=== PATIENT | female | born 1960 | race Caucasian/White ===

== ENCOUNTER 2019-06-01 18:16 | Emergency (ER) | payer MEDICAID, OTHER ==
[~2019-06-01] VITALS: Ht 167.6 cm; Wt 75.3 kg
[2019-06-01 18:39] VITALS: BP_SYST 142
--- NOTE | 2019-06-01 18:39 | NUR ---
Placed in room 4 . Placed on cardiac care unit nurse, blood pressure machine and pulse oximeter. To gown for exam. Side rails up.
--- NOTE | 2019-06-01 18:40 | NUR ---
Pt was wheeled into ER bed 4 c/o abdominal pain for the last 6 months. Pt states pain has gotten worse and is more diffuse and radiates to back. Pt was seen at her doctor and was told she "was backed," and was prescribed colace. Per pt, unable to recall when she had regular bowel movement. Pt states she thinks she passed out last night because she wasn't feeling good and then suddenly woke up. Pt denies fever, chest pain or shortness of breath. No other injuries/complaints per patient or noted.
--- NOTE | 2019-06-01 19:11 | NUR ---
Care endorsed to Massimo RN. Pt left in stable condition.
[2019-06-01 19:38] LABS: BILIRUBIN,URINE NEGATIVE (NEGATIVE); BLOOD, URINE 1+ (NEGATIVE); CLARITY/URINE CLEAR (CLEAR); COLOR,URINE YELLOW (YELLOW); GLUCOSE,URINE NEGATIVE (NEGATIVE); KETONES,URINE NEGATIVE (NEGATIVE); LEUKOCYTE ESTERASE ,URINE NEGATIVE (NEGATIVE); NITRITE, URINE NEGATIVE (NEGATIVE); PROTEIN URINE NEGATIVE (NEGATIVE); UROBILINOGEN,URINE 0.2 (0.2-1.0)
[2019-06-01 19:46] LABS: BASOPHILS % (AUTO) 0.5 % (0.0-2.0); EOSINOPHILS # (AUTO) 0.1 K/uL (0.0-0.4); EOSINOPHILS % (AUTO) 1.7 % (0.0-4.0); HEMATOCRIT 43.2 % (36-48); HEMOGLOBIN 14.8 g/dL (12.0-16.0); LYMPHOCYTES # (AUTO) 2.4 K/uL (1.0-5.5); MEAN CORPUSCULAR HEMOGLOBIN 31 pg (27-31); MEAN CORPUSCULAR HGB CONC 34 % (32-36); MEAN CORPUSCULAR VOLUME 91 fL (79.0-98.0); MONOCYTES # (AUTO) 0.6 K/uL (0.0-1.0); NEUTROPHILS # (AUTO) 5.6 K/uL (1.8-7.7); NEUTROPHILS % (AUTO) 63.8 % (40.0-70.0); PLATELET COUNT (AUTO) 347 K/uL (130-430); RED BLOOD CELL COUNT(AUTO) 4.73 MIL/uL (4.2-6.2); RED CELL DISTRIBUTION WIDTH 12.9 % (9.0-15.0); WHITE BLOOD COUNT (AUTO) 8.7 K/uL (4.8-10.8)
[2019-06-01 19:48] LABS: BACTERIA,URINE None Seen /HPF (None Seen); RBC,URINE 0-3 /HPF (0-3); WBC,URINE NONE SEEN /HPF (0-3)
[2019-06-01 19:49] LABS: MUCUS,URINE None Seen /LPF (None Seen)
[2019-06-01 19:49] LABS: CREATININE 0.71 mg/dL (0.55-1.30); POTASSIUM 4.2 mmol/L (3.5-5.1)
[2019-06-01 19:53] LABS: ALBUMIN 3.5 g/dL (3.4-4.8); TOTAL BILIRUBIN 0.5 mg/dL (0.0-1.0)
[2019-06-01] MEDS ORDERED: LACTULOSE 20 GM/30 ML UDC PO ONE (20:00)
--- NOTE | 2019-06-01 20:07 | NUR ---
Pt taken to Radiology in stable condition
--- NOTE | 2019-06-01 20:32 | NUR ---
Dr. Jaffe bedside for Pt update
--- NOTE | 2019-06-01 20:50 | NUR ---
Patient given written and verbal discharge instructions and verbalizes understanding. ER MD discussed with patient the results and treatment provided. Patient in stable condition. ID arm band removed. Rx of Lactulose, Mineral Oil, and Protonix given. Patient educated on pain management and to follow up with PMD. Pain Scale 0/10 Opportunity for questions provided and answered. Medication side effect fact sheet provided.
[2019-06-01 20:59] VITALS: BP_SYST 138
== END 2019-06-01 20:50 | disposition home or self-care (01) ==
LOC: SED 18:16
DX: R10.9 Unspecified abdominal pain (principal); M54.5 Low back pain; R63.0 Anorexia; R11.0 Nausea; R19.7 Diarrhea, unspecified; R31.9 Hematuria, unspecified; E78.5 Hyperlipidemia, unspecified; Z98.51 Tubal ligation status
CPT/HCPCS: 36415; 74021; 80053; 81000-TC; 85025; 99284

== ENCOUNTER 2022-05-20 13:34 | Emergency (ER) | payer MEDICAID ==
[~2022-05-20] VITALS: Ht 170.2 cm; Wt 63.5 kg
[2022-05-20 14:40] VITALS: BP_SYST 138
--- NOTE | 2022-05-20 14:40 | NUR ---
Patient to ER bed tent1 to gown for evaluation. Side rails up.
[2022-05-20] MEDS ORDERED: ALBUTEROL SULFATE 0.083% 2.5 MG/3 ML VIAL.NEB INH ONE (14:45)
--- NOTE | 2022-05-20 14:45 | NUR ---
ER at bedside examining patient.
--- NOTE | 2022-05-20 14:48 | NUR ---
KENDRAID swabbed, sent to lab.
[2022-05-20 16:26] LABS: BASOPHILS % (AUTO) 0.5 % (0.0-2.0); EOSINOPHILS # (AUTO) 0.2 K/uL (0.0-0.4); EOSINOPHILS % (AUTO) 2.1 % (0.0-4.0); HEMATOCRIT 43.5 % (36-48); HEMOGLOBIN 14.9 g/dL (12.0-16.0); LYMPHOCYTES % (AUTO) 30.6 % (20.5-51.5); MEAN CORPUSCULAR HEMOGLOBIN 30 pg (27-31); MEAN CORPUSCULAR HGB CONC 34 % (32-36); MEAN CORPUSCULAR VOLUME 89 fL (79.0-98.0); MONOCYTES # (AUTO) 0.6 K/uL (0.0-1.0); MONOCYTES % (AUTO) 6.4 % (1.7-9.3); NEUTROPHILS % (AUTO) 60.4 % (40.0-70.0); PLATELET COUNT (AUTO) 331 K/uL (130-430); RED BLOOD CELL COUNT(AUTO) 4.91 MIL/uL (4.2-6.2); RED CELL DISTRIBUTION WIDTH 13.6 % (9.0-15.0); WHITE BLOOD COUNT (AUTO) 9.9 K/uL (4.8-10.8)
[2022-05-20 16:36] LABS: ANION GAP 5 (5-15); CALCIUM 8.9 mg/dL (8.4-11.0); CHLORIDE 103 mmol/L (98-107); CREATININE 0.62 mg/dL (0.55-1.30); GLUCOSE 93 mg/dL (70-99); POTASSIUM 3.9 mmol/L (3.5-5.1); SODIUM SERUM 137 mmol/L (136-145); UREA NITROGEN, BLOOD 7 mg/dL (8-21)
[2022-05-20 16:37] LABS: GFR AFRICAN AMERICAN 126 mL/min (>90)
[2022-05-20 16:44] LABS: ALANINE AMINOTRANSFERASE 38 U/L (12-78); ALBUMIN 3.4 g/dL (3.4-4.8); ASPARTATE AMINOTRANSFERASE 29 U/L (10-37); TOTAL BILIRUBIN 0.3 mg/dL (0.0-1.0)
--- NOTE | 2022-05-20 17:29 | NUR ---
Pt awaiting lab results notified
[2022-05-20] MEDS ORDERED: ALBMDI INH (17:33)
[2022-05-20 17:58] VITALS: BP_SYST 132
--- NOTE | 2022-05-20 18:01 | NUR ---
Patient given written and verbal discharge instructions and verbalizes understanding. ER MD discussed with patient the results and treatment provided. Patient in stable condition. ID arm band removed. Rx of ALBUTEROL given. Patient educated on pain management and to follow up with PMD. Pain Scale 0/10. Opportunity for questions provided and answered. Medication side effect fact sheet provided.
== END 2022-05-20 18:01 | disposition home or self-care (01) ==
LOC: SED 13:34
DX: R06.02 Shortness of breath (principal); R07.9 Chest pain, unspecified; R11.0 Nausea; Z79.899 Other long term (current) drug therapy; Z20.822 Contact with and (suspected) exposure to COVID-19
CPT/HCPCS: 80053; 84703; 85025; 85379; 84484; 36415; 93005; 94640; 99284; 87426; J7613

== ENCOUNTER 2022-11-16 06:36 | Day surgery (SDC) | payer MEDICAID ==
[~2022-11-16] VITALS: Ht 167.6 cm; Wt 74.8 kg
[~2022-11-16 06:36] MED LIST: ALBMDI INH
[2022-11-16] MEDS ORDERED: SIMETHICONE 40 MG/0.6 ML ML ONE (06:54)
[2022-11-16] MEDS ORDERED: fentaNYL CITRATE/PF 100 MCG/2 ML AMP ONE (06:55)
[2022-11-16] MEDS: MIDAZOLAM HCL 5 MG/5 ML VIAL ONE ×2 (07:42→07:45)
[2022-11-16 12:53] VITALS: BP_SYST 122
== END 2022-11-16 09:14 | disposition home or self-care (01) ==
LOC: SDS 06:36 → SMU 06:37 → SDS 09:14
PROVIDERS: ATTEND Internal Medicine
DX: Z12.11 Encounter for screening for malignant neoplasm of colon (principal); D12.3 Benign neoplasm of transverse colon; Z86.010 Personal history of colon polyps; K64.8 Other hemorrhoids; Z79.899 Other long term (current) drug therapy; Z20.822 Contact with and (suspected) exposure to COVID-19
CPT/HCPCS: 87426; 36415; 45385; 88305; 99152; G0378; J2250; J3010